=== PATIENT | female | born 1955 | race Caucasian/White ===

== ENCOUNTER 2017-07-03 06:55 | Day surgery (SDC) | payer OTHER ==
[~2017-07-03] VITALS: Ht 160 cm; Wt 63.5 kg
[~2017-07-03 06:55] MED LIST: ASPIRIN EC81 MG PO; ATORVASTATIN CA40 MG PO; BLACK COHOSH40 MG PO; CALCIUM 600 +1 EA15 PO; CITRUCEL479 GM PO; CLARITIN10 MG PO; COQ1050 MG PO; DAILY MULTIPLE1 EACH PO; LISINOPRIL20 MG PO; NORCO 10-325 T1 EACH PO
--- NOTE | 2017-07-03 10:12 | NUR ---
JUANIS COY TOLD ME PT REQUESTED MY PRESENCE. SHE WAS RESTING-ALERT, ORIENTED AND SUPPORTED BY HER YULIANA. I COULD TELL THAT BY THE LOOK ON HER FACE THAT SHE WAS CONCERNED ABOUT HER PROCEDURE TODAY. WE DEBRIEFED, EXPLAINED ORDER OF EVENTS FOR TODAY AND HAD PRAYER WITH BOTH OF THEM. SHE THANKED ME, I WILL FOLLOW UP
--- NOTE | 2017-07-03 10:14 | NUR ---
07/03/17 1014 SheliaRandall dorsey PT AWOKE AT THIS TIME AND RATES HER PAIN AT A 2-3/10.
[2017-07-03] MEDS ORDERED: NORCO 5-325 TA1 EACH PO (11:04)
[2017-07-03] MEDS ORDERED: IBUPROFEN800 MG PO (11:04)
--- NOTE | 2017-07-27 07:49 | OR ---
[facility] [address] [place], [place] [address] Signed DATE OF SERVICE: 07/03/2017 SURGEON: Lashonda Goins MD PREOPERATIVE DIAGNOSIS: Cervical stenosis, postmenopausal bleeding. POSTOPERATIVE DIAGNOSIS: Postmenopausal bleeding, cervical stenosis, atrophic cavity, fundus perforation. PROCEDURE PERFORMED: Hysteroscopy. ANESTHESIA: Total IV anesthetic. ESTIMATED BLOOD LOSS: Minimal. DRAINS: None. INDICATIONS AND FINDINGS: The patient is a 61-year-old female, 2, para 2, who has had 2 episodes of postmenopausal bleeding this year. She had an episode in February and then an ultrasound at that point showed a very thin endometrial stripe. She had a recurrent episode in May. However, at this point, the fundal endometrium could not really be evaluated. EMB was not possible in the office and hysterosonogram was not possible secondary to cervical stenosis. It was felt that hysteroscopy was necessary for diagnosis. At the time of surgery, exam under anesthesia revealed significant uterine prolapse. The cervix was quite stenotic. It was eventually dilated and the cavity sounded to 9 cm. On placement of the hysteroscopy equipment, the cavity appeared to be completely atrophic. However, on evaluation of the fundus, there was a perforation noted and the procedure was terminated at that time. PROCEDURE IN DETAIL: The patient was prepped and draped in the dorsal lithotomy position. A weighted speculum was placed and the anterior lip of the cervix was visualized and grasped with a single-tooth tenaculum. The endocervical canal was then dilated with some difficulty to a #8 dilator. At that point, the s o und could be placed and the cavity sounded to 9 cm. The MyoSure device was introduced using saline as a medium. Evaluation of the cavity was done and it appeared to be completely atrophic; however, on evaluation of the fundus, perforation was noted and the procedure was terminated. The tenaculum and weighted speculum removed. There was no evidence of ongoing bleeding from either the tenaculum site or from the cervix. The patient was then taken to the recovery room in good condition. All sponge and needle counts were correct. She tolerated the procedure well. Electronically Signed By: LASHONDA GOINS MD 07/27/17 0749 PATIENT NAME: ANTIONETTE JOE MARITA OPERATIVE REPORT DATE OF : 51 PHYSICIAN: LASHONDA GOINS MD REPORT #: [id number] REPORT IS CONFIDENTIAL AND NOT TO BE RELEASED WITHOUT AUTHORIZATION [address] [place], [place] [address] Signed Lashonda Goins MD PJW/Modl /[id number] cc: Tc Thomas Electronically Signed By: LASHONDA GOINS MD 07/27/17 0749 PATIENT NAME: ANTIONETTE JOE MARITA OPERATIVE REPORT DATE OF : 51 PHYSICIAN: LASHONDA GOINS MD REPORT #: [id number] REPORT IS CONFIDENTIAL AND NOT TO BE RELEASED WITHOUT AUTHORIZATION
== END 2017-07-03 12:10 | disposition home or self-care (01) ==
LOC: DS 06:55
PROVIDERS: Obstetrics & Gynecology
PROC: 0UDB8ZX Extraction of Endometrium, Via Natural or Artificial Opening Endoscopic, Diagnostic (ICD-10-PCS; principal; 2017-07-03 08:15)
DX: N88.2 Stricture and stenosis of cervix uteri (principal); I10 Essential (primary) hypertension; E78.5 Hyperlipidemia, unspecified; E78.00 Pure hypercholesterolemia, unspecified; K21.9 Gastro-esophageal reflux disease without esophagitis; Z98.890 Other specified postprocedural states
CPT/HCPCS: 00952; J2250; J2704; J2765; J3010; J7120

== ENCOUNTER 2018-12-24 05:30 | Day surgery (SDC) | payer OTHER, MEDICARE ==
[~2018-12-24] VITALS: Ht 160 cm; Wt 66.7 kg
--- NOTE | ~2018-12-24 | OR ---
[facility] [address], [place] [address] Draft DATE OF OPERATION: 12/24/2018 SURGEON: Lashonda Goins MD PRESS CLEANER: Levon Landrum MD PREOPERATIVE DIAGNOSES: Recurrent postmenopausal bleeding, cervical stenosis. POSTOPERATIVE DIAGNOSES: Recurrent postmenopausal bleeding, cervical stenosis, pending pathology, pelvic adhesions. PROCEDURES: Total laparoscopic hysterectomy, bilateral salpingo-oophorectomy, lysis of adhesions, cystoscopy. ANESTHESIA: General ET. ESTIMATED BLOOD LOSS: 50 mL. DRAINS: Humphrey catheter. INDICATIONS AND FINDINGS: The patient is a 63-year-old female 2, para 2, who has had several episodes of postmenopausal bleeding. Unfortunately, during the 2nd episode, a hysteroscopy was attempted, which was complicated by a fundal perforation. She subsequently had recurrent bleeding and even though ultrasound was normal, hysteroscopy was not really entertained given her prior history. At this point, it was felt that she needed to undergo hysterectomy to exclude potential problems with her recurrent bleeding. She does have cervical stenosis that she has undergone colon biopsies in the past. At the time of surgery, it was difficult to dilate her cervix, but it was dilated and no perforation occurred during this time. On laparoscopy, the pelvis appeared normal other than adhesions of the sigmoid epiploica to the left ovary. DESCRIPTION OF PROCEDURE: PATIENT NAME: ANTIONETTE JOE MARITA OPERATIVE REPORT DATE OF : 51 REPORT #: [id number] PHYSICIAN: LASHONDA GOINS MD PCP: LORETTA VEGA MD REPORT IS CONFIDENTIAL AND NOT TO BE RELEASED WITHOUT AUTHORIZATION [facility] [address] [place], [place] [address] Draft The patient was prepped and draped in the dorsal lithotomy position. A weighted speculum was placed and the anterior lip of the cervix was visualized and grasped with a single-tooth tenaculum. The Os Finders was used to dilate the cervix and at that point, it could be sounded and was sounded to 9 cm. The endocervical canal was then dilated to a #8 dilator. The VCare cannula was then placed and the balloon inflated at the fundus. The tenaculum and speculum removed and the cup was fitted over the cervix and a locking cap was fitted into place. Attention was redirected above. The infraumbilical area was injected with 0.5% Marcaine plain. An incision was made with a knife and each layer was then serially elevated and incised until the fascia was opened and identified. Stay sutures were placed. The peritoneum was opened bluntly. The Cong cannula was placed and the balloon inflated. It was tied into place. Placement of the scope confirmed proper positioning. CO2 was then introduced into the abdomen. When it appeared appropriately distended, the pelvis was visualized. A small amount of scar tissue was felt that the planned procedure was appropriate. Secondary ports were placed slightly below the umbilicus and these were placed laterally. The abdominal wall was transilluminated, injected with the Marcaine, incision made with a knife, and the trocar was placed under direct vision. The left hand port was a 5 mm bladed port. The right hand port was a raised needle followed by the expanding port. At this point, the LigaSure [place] device was used to coagulate the infundibulopelvic ligament on the patient's left side. This was done multiple times and then divided. An Endoloop was then placed over the infundibulopelvic ligament to aid hemostasis. The adhesions at the ovary were taken down also with the Maryland device. These were fairly filmy. The tube and ovary were then removed by serially coagulating and dividing the broad ligament. The round ligament was then serially coagulated and divided as well. At this point, the anterior leaf of the peritoneum could be incised allowing partial bladder flap creation. The posterior peritoneum was taken down as well. Following this, the uterine vessels could be skeletonized and coagulated multiple times and divided. Further dissection was done both anteriorly and posteriorly and the cup could be seen at this time. Attention was then directed to the patient's right-hand side. The infundibulopelvic ligament was again identified, coagulated multiple times and divided. An Endoloop was placed over the infundibulopelvic ligament to aid in hemostasis. The tube and ovary were then removed with serial coagulation and division. The round ligament was then identified and coagulated and divided with the LigaSure device as well. The anterior leaf of the peritoneum was incised creating the remaining bladder flap. The posterior peritoneum was taken down as well. The uterine vessels were then skeletonized and coagulated multiple times and then divided. Further dissection was done both posteriorly and anteriorly to allow for further visualization of the cuff. At this point, the VCare did perforate the fundal portion of the uterus. Following this, the right sidewall was reexamined and there appeared to be an open vessel, though there was no evidence of any bleeding. This was felt to be from the infundibulopelvic ligament. This was re-tied with another Endoloop of 0 PDS. Following this, it was felt that the specimen could be removed. The Interface Security Systemsision device was used and it was begun posteriorly, wrapped around PATIENT NAME: ANTIONETTE JOE OPERATIVE REPORT DATE OF : 51 REPORT #: [id number] PHYSICIAN: LASHONDA GOINS MD PCP: LORETTA VEGA MD REPORT IS CONFIDENTIAL AND NOT TO BE RELEASED WITHOUT AUTHORIZATION [facility] [address] [place], [place] [address] Draft the left side anteriorly and then posteriorly wrapped around the right side and anteriorly as well. Following this, the specimen was removed vaginally. A glove filled with two wet 4 x 8s was placed in the vagina. This allowed the pneumoperitoneum to reaccumulate. Gloves were changed again and attention redirected above. The abdomen was copiously irrigated with fluid and good hemostasis was noted. The Endo Stitch was then used to close the vaginal cuff. This was begun at the patient's right uterosacral ligament incorporating both the perineum posteriorly and the vaginal mucosa at the posterior cuff and then coming through the vaginal mucosa through the cuff anteriorly. This was a running suture from the patient's right uterosacral ligament to the patient's left uterosacral ligament and back to the center. The abdomen was again thoroughly inspected and there was no evidence of ongoing bleeding. The pressure was turned down and again no bleeding was noted. The abdomen was then deflated and the instruments were removed. The fascial incision of the umbilicus was reidentified and closed in a running suture of 0 Vicryl. The skin incisions were closed with subcuticular sutures of 3-0 Vicryl Rapide. Attention was directed below and the glove was removed from the vagina. The Humphrey catheter was removed and the cystoscope was placed. The patient had received IV fluorescein. The bladder was filled and there was no evidence of any injury to the bladder. Free flow of urine was seen to freely egress from both of the ureteral orifices, so no fluorescein was seen at this time. Following this, the bladder was drained and the cystoscope removed. The Humphrey catheter was replaced. All sponge and needle counts were correct. She tolerated the procedure well and was taken to the recovery room in good condition. Lashonda Goins MD PJW/MODL /[id number] cc: MD Levon Herrera MD Copies: LORETTA VEGA MD PATIENT NAME: ANTIONETTE JOE MARITA OPERATIVE REPORT DATE OF : 51 REPORT #: [id number] PHYSICIAN: LASHONDA GOINS MD PCP: LORETTA VEGA MD REPORT IS CONFIDENTIAL AND NOT TO BE RELEASED WITHOUT AUTHORIZATION [facility] [address] [place] [address] [place] [address] Draft LEVON LANDRUM MD ~ PATIENT NAME: ANTIONETTE JOE OPERATIVE REPORT DATE OF : 51 REPORT #: [id number] PHYSICIAN: LASHONDA GOINS MD PCP: LORETTA VEGA MD REPORT IS CONFIDENTIAL AND NOT TO BE RELEASED WITHOUT AUTHORIZATION
[~2018-12-24 05:30] MED LIST changes: +CINNAMON500 MG PO; +IBUPROFEN800 MG PO; +NORCO 5-325 TA1 EACH PO
--- NOTE | 2018-12-24 09:31 | NUR ---
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 PT NONAROUSABLE TO PAINFUL STIMULI. RESP EVEN AND UNLABORED BUT SHALLOW.
--- NOTE | 2018-12-24 10:39 | NUR ---
OXYGEN TURNED OFF AFTER 1ST SET OF VITALS ARE TAKEN. CONTINUOUS PULSE OXIMETER LEFT IN PLACE. ICED WATER @ BS. PATIENT DENIES DESIRE FOR TAKING A DRINK. PATIENT'S SPOUSE IS AT THE BEDSIDE. PRN GIVEN FOR PAIN. CALL LIGHT W/IN REACH.
--- NOTE | 2018-12-24 11:40 | NUR ---
MORE ICED WATER GIVEN. CRACKERS GIVEN. PATIENT IS ASLEEP WHEN THIS RN ENTERS THE ROOM AND HER OXYGEN SATURATION IS 97% ON RA. CONTINUOUS PULSE OXIMETER IS DISCONTINUED. CALL LIGHT W/IN REACH.
--- NOTE | 2018-12-24 12:37 | NUR ---
PATIENT UP TO THE BEDSIDE AND STANDS WELL AND DENIES DIZZINESS. CELAYA BALLOON IS DC FOR 10 ML AND CELAYA IS DC WNL. PATIENT TOLERATES THAT WELL. 150 ML BRIGHT YELLOW URINE NOTED TO CELAYA OVERNIGHT BAG. SOUP AND APPLESAUCE IS GIVEN. HAWA HUGGER ON WARM. PATIENT'S SPOUSE IS @ THE BS.
--- NOTE | 2018-12-24 14:20 | NUR ---
PATIENT ASLEEP WHEN THIS RN ENTERS THE ROOM. PATIENT WAKES EASILY TO THE RN VOICE. PATIENT'S SPOUSE IS IN THE ROOM. PATIENT'S HEAD IS ELEVATED PER HER REQUEST. PATIENT DENIES ADDITIONAL NEEDS @ THIS TIME.
--- NOTE | 2018-12-24 14:23 | NUR ---
PATIENT UP TO THE BATHROOM WITH RN STANDBY. PATIENT AMBULATES WELL AND DENIES DIZZINESS. PATIENT VOIDS 100 ML BRIGHT YELLOW URINE AND REQ DC HOME. DC INSTRUCTIONS GIVEN IN PRESENCE OF SPOUSE AND BOTH VERBALIZE UNDERSTANDING. PATIENT GETTING DRESSING IN PRESENCE OF SPOUSE.
--- NOTE | 2018-12-24 14:39 | NUR ---
CONNECTED WITH PT'S -HE WAS HEADED TO PHARMACY WHILE PT IS RECOVERING. VISITED PT, SHE WAS GROGGY, BUT AWARE OF MY PRESENCE, AND PLEASANT. SHE DID ADMIT THAT SHE WAS CHILLY, ARRANGED FOR A BLANKET AND WILL FOLLOW NEEDED
--- NOTE | 2018-12-24 14:56 | NUR ---
PATIENT TRANSFERS SELF TO AND THEN TO PERSONAL VEHICLE AND TOLERATES THAT WELL.
== END 2018-12-24 14:50 | disposition home or self-care (01) ==
LOC: DS 05:30
PROVIDERS: Obstetrics & Gynecology
PROC: 0UT94ZZ Resection of Uterus, Percutaneous Endoscopic Approach (ICD-10-PCS; principal; 2018-12-24 06:45)
PROC: 0UT24ZZ Resection of Bilateral Ovaries, Percutaneous Endoscopic Approach (ICD-10-PCS; 2018-12-24 06:45)
PROC: 0UT74ZZ Resection of Bilateral Fallopian Tubes, Percutaneous Endoscopic Approach (ICD-10-PCS; 2018-12-24 06:45)
DX: D25.1 Intramural leiomyoma of uterus (principal); D25.2 Subserosal leiomyoma of uterus; N83.292 Other ovarian cyst, left side; N83.291 Other ovarian cyst, right side; N88.2 Stricture and stenosis of cervix uteri; N73.6 Female pelvic peritoneal adhesions (postinfective); N83.8 Other noninflammatory disorders of ovary, fallopian tube and broad ligament; I10 Essential (primary) hypertension; E78.00 Pure hypercholesterolemia, unspecified; N39.3 Stress incontinence (female) (male); K21.9 Gastro-esophageal reflux disease without esophagitis; Z88.0 Allergy status to penicillin; Z79.899 Other long term (current) drug therapy; Z79.82 Long term (current) use of aspirin
CPT/HCPCS: 00840; J0131; J0694; J1100; J1644; J1885; J2250; J2270; J2405; J2704; J3010; J7120

== ENCOUNTER 2020-09-27 11:59 | Day surgery (SDC) | payer MEDICARE ==
[~2020-09-27] VITALS: Ht 157.5 cm; Wt 63.6 kg
[2020-09-27] MEDS ORDERED: CALCIUM 600 MG1 EACH PO (12:20)
--- NOTE | 2020-09-27 15:11 | NUR ---
09/27/20 1511 Karen Gaspar 1452 PT ARRIVED IN PACU SLEEPY WITH NO C/O'S. ABD SOFT. 1500 DR AT BEDSIDE TALKING WITH PT. 1510 PASSING FLATUS.
--- NOTE | 2020-09-28 08:31 | OR ---
[facility] [address] [place], [place] [address] Signed DATE OF OPERATION: 09/27/2020 SURGEON: Jermaine Adorno MD PREOPERATIVE DIAGNOSES: 1. Colon surveillance. 2. Last colonoscopy in 2014 (extensive diverticulosis). POSTOPERATIVE DIAGNOSES: 1. Polyps x4. 2. Extensive diverticulosis. PROCEDURE: Total colonoscopy to cecum with hot snare polypectomy, polyp of cecum, cold morcellation polypectomy, right colon polyp, cold morcellation polypectomy, left-sided polyp. ANESTHESIA: Intravenous sedation, fentanyl 150 mcg, Versed 6 mg. INDICATION: This 64-year-old white woman is a patient of Dr. Thomas and known to me from the past having undergone colonoscopy in 2014 where she was found only to have extensive diverticulosis. She has complaints of "gas pain." Additionally, she does have family history of colon cancer in her brother. She is admitted at this time to undergo colonoscopy. She understands the risks of bleeding, infection, and perforation. FINDINGS: The prep was good overall. Complete colonoscopy was undertaken of the cecum. Colonoscopy was rather challenging due to the extent of her diverticulosis, which extended from the sigmoid completely to the cecum. There were 4 small polyps, all excised completely. There was no sign of cancer proper. DESCRIPTION OF PROCEDURE: The patient was brought into the endoscopy suite and placed in lateral decubitus position, given intravenous sedation to the point of slurred speech and nystagmus. Digital rectal examination was normal. An Olympus video colonoscope was passed in the rectum and manipulated throughout the colon. Numerous diverticula are seen in the sigmoid and left colon, which required a considerable amount of time and effort just to pass through this area. Ultimately, the Electronically Signed By: JERMAINE ADORNO MD 09/28/20 0831 PATIENT NAME: ANTIONETTE JOE OPERATIVE REPORT DATE OF : 51 REPORT #: [id number] PHYSICIAN: JERMAINE ADORNO MD PCP: LORETTA THOMAS MD REPORT IS CONFIDENTIAL AND NOT TO BE RELEASED WITHOUT AUTHORIZATION [facility] [address] [place], [place] [address] Signed scope was passed further and ultimately to the cecum itself. The ileocecal valve and appendiceal orifice were normal. There seem to be a 1 cm or less sinus flat polyp of the cecum, which was excised with hot snare polypectomy technique, passed for pathology. Scope was withdrawn and a mid ascending colon polyp was noted. This too was excised with cold morcellation technique. A bit further was a small polyp also excised. Further withdrawal of scope noted only the diverticulosis until 60 cm from the anal verge where a small polyp was noted. This was excised with cold morcellation technique. The remaining colon showed only diverticulosis. The rectum was normal. Scope was removed and the patient was taken to recovery room in good condition. Notably, the photo archived for the colonoscopy was incomplete, but visualization of the cecal polyp represent diverticuli was accomplished. CONCLUSION DIAGNOSES: 1. Extensive diverticulosis. 2. Polyps x4, likely all benign. PLAN: Recommend repeat colonoscopy in 5 years based on family history of colon cancer in brother. MD LUIS Allan/DENNIS /[id number] cc: Loretta Thomas MD Copies: LORETTA THOMAS MD ~ Electronically Signed By: JERMAINE ADORNO MD 09/28/20 0831 PATIENT NAME: ANTIONETTE JOE MARITA OPERATIVE REPORT DATE OF : 51 REPORT #: [id number] PHYSICIAN: JERMAINE ADORNO MD PCP: LORETTA THOMAS MD REPORT IS CONFIDENTIAL AND NOT TO BE RELEASED WITHOUT AUTHORIZATION
--- NOTE | 2020-09-28 12:21 | PATH ---
[facility] [address] [place], [place] [address] Signed SPECIMEN(S): A CECAL POLYP SPECIMEN(S): B ASCENDING POLYP SPECIMEN(S): C DISTAL ASCENDING POLYP SPECIMEN(S): D COLON POLYP AT 60 CM SPECIMEN SOURCE: A. CECAL POLYP B. ASCENDING POLYP C. DISTAL ASCENDING POLYP D. COLON POLYP AT 60 CM CLINICAL HISTORY: Pre: Family history, abdominal pain. Post: Polyps x 4, diverticulosis. MICROSCOPIC DESCRIPTION: Histologic sections of all submitted blocks are examined by light microscopy. These findings, together with the gross examination, support the pathologic diagnosis. FINAL PATHOLOGIC DIAGNOSIS: A. Colon, cecum, polyp, polypectomy: - Tubular adenoma. - Negative for high-grade dysplasia or malignancy. B. Colon, ascending, polyp, polypectomy: - Fragments of tubular adenoma. - Negative for high-grade dysplasia or malignancy. C. Colon, distal ascending, polyp, polypectomy: - Tubular adenoma. - Negative for high-grade dysplasia or malignancy. D. Colon, polyp at 60 cm, polypectomy: - Fragments of colonic mucosa with no histopathologic abnormality. - Benign mucosal lymphoid aggregate is present in one fragment. - Negative for dysplasia or malignancy. NAL:bg:C2NR GROSS DESCRIPTION: Four specimens are received in four containers, labeled "CB." A. The specimen, labeled "CB, cecal polyp," is received in formalin and consists of one long soft tissue fragment that measures 0.4 cm in greatest dimension. The specimen is entirely submitted in cassette (A1). B. The specimen, labeled "CB, ascending colon polyp," is received in formalin PATIENT NAME: ANTIONETTE JOE PATHOLOGY DATE OF : 51 REPORT #: [id number] PHYSICIAN: PETER ROBERTSON PCP: LORETTA VEGA MD REPORT IS CONFIDENTIAL AND NOT TO BE RELEASED WITHOUT AUTHORIZATION [facility] [address] [place] [address] Signed and consists of three long soft tissue fragments that measure 0.1-0.2 cm in greatest dimension. The specimen is entirely submitted in cassette (B1). C. The specimen, labeled "CB, distal ascending colon polyp," is received in formalin and consists of two long soft tissue fragments that measure 0.1-0.2 cm in greatest dimension. The specimen is entirely submitted in cassette (C1). D. The specimen, labeled "CB, colon polyp at 60 cm," is received in formalin and consists of two long soft tissue fragments that measure 0.1 cm in greatest dimension. The specimen is entirely submitted in cassette (D1). JS (under the direct supervision of a pathologist) The Gross Description was prepared using a voice recognition system. The report was reviewed for accuracy; however, sound-alike word errors, addition and/or deletions may occur. If there is any question about this report, please contact Client Services. PERFORMING LABORATORY: The technical component was performed by [employer] [address] ([employer]: Doretha Herbert MD; CLIA# [id number]). [facility] [address] [address] (CLIA# [id number]). Diagnostician: Ciltaly Luis MD Pathologist Electronically Signed 09/28/2020 Copies: ~ PATIENT NAME: ANTIONETTE JOE PATHOLOGY DATE OF : 51 REPORT #: [id number] PHYSICIAN: PETER ROBERTSON PCP: LORETTA VEGA MD REPORT IS CONFIDENTIAL AND NOT TO BE RELEASED WITHOUT AUTHORIZATION
== END 2020-09-27 15:52 | disposition home or self-care (01) ==
LOC: OPS 11:59 → DS 12:03 → OPS 13:00 → DS 13:00 → OPS 15:52
PROVIDERS: ATTEND Surgery
PROC: 0DBK8ZX Excision of Ascending Colon, Via Natural or Artificial Opening Endoscopic, Diagnostic (ICD-10-PCS; 2020-09-27)
PROC: 0DBE8ZX Excision of Large Intestine, Via Natural or Artificial Opening Endoscopic, Diagnostic (ICD-10-PCS; 2020-09-27)
PROC: 0DBH8ZX Excision of Cecum, Via Natural or Artificial Opening Endoscopic, Diagnostic (ICD-10-PCS; principal; 2020-09-27 13:00)
DX: Z12.11 Encounter for screening for malignant neoplasm of colon (principal); D12.2 Benign neoplasm of ascending colon; D12.0 Benign neoplasm of cecum; K57.30 Diverticulosis of large intestine without perforation or abscess without bleeding; I10 Essential (primary) hypertension; N95.1 Menopausal and female climacteric states; E78.00 Pure hypercholesterolemia, unspecified; Z88.0 Allergy status to penicillin; Z79.899 Other long term (current) drug therapy; Z80.0 Family history of malignant neoplasm of digestive organs
CPT/HCPCS: 99153; G0500; J2250; J3010; J7121

== ENCOUNTER 2021-05-26 11:04 | Inpatient (IN) | payer MEDICARE ==
[~2021-05-26] VITALS: Ht 157.5 cm; Wt 65.6 kg
[~2021-05-26 11:04] MED LIST changes: +ADULT LOW DOSE81 MG PO; -ASPIRIN EC81 MG PO; +CALCIUM 600 +1 EA14 PO; -CITRUCEL479 GM PO; +CITRUCEL500 MG PO; +COQ-10100 MG PO; -COQ1050 MG PO
[2021-05-26] MEDS ORDERED: PAROXETINE HCL10 MG PO (11:20)
[2021-05-26] MEDS ORDERED: LISINOPRIL10 MG PO (17:24)
[2021-05-26] MEDS ORDERED: LATANOPROST2.5 ML OU (17:26)
--- NOTE | 2021-05-26 17:37 | NUR ---
BOTH IV SITES ARE INTACT, NO REDNESS OR SWELLING NOTED, PT DENIES PAIN AT EITHER SITE. FLUIDS AND FLUSHES INFUSE EASILY.
--- NOTE | 2021-05-26 20:20 | NUR ---
AWAKE, ALERT. BLOOD INFUSING. UP TO BSC TO VOID AND JAVID WELL. VOIDED CL LIGHT YELLOW URINE.
--- NOTE | 2021-05-26 21:30 | NUR ---
BLOOD INFUSED AT 2120. PT UP TO BSC TO VOID LARGE AMT URINE, STATES NOT DIZZY NOW AND IS FEELING WARMER SINCE RECIEVED BLOOD.
--- NOTE | 2021-05-26 23:00 | NUR ---
DR MANUEL NOTIFIED OF LAB RESULTS.
--- NOTE | 2021-05-27 00:10 | NUR ---
PT SLEEPING AT THIS TIME.
--- NOTE | 2021-05-27 00:51 | NUR ---
AWAKENED FOR ASSESSMENT. UP TO BSC TO VOID, DID BRIEFLY SIT BACK DOWN ON BED BUT STATES WASN'T DIZZY. IS PASSING GAS.
--- NOTE | 2021-05-27 01:00 | NUR ---
CARE ASSUMED OF PT, REPORT RECEIVED FROM ANALI OLIVAREZ. PT IN BED, RESTFUL, RESP EVEN AND UNLABORED.
--- NOTE | 2021-05-27 02:20 | NUR ---
SECOND BAG OF D5 STARTED INFUSING, PT RESTING WITH EYES CLOSED, RRR.
--- NOTE | 2021-05-27 03:00 | NUR ---
UP TO VOID IN BSC, BACK TO BED, HR STEADY WHILE UP, NO REQUESTS.
--- NOTE | 2021-05-27 04:30 | NUR ---
IN TO CHECK ON PT, STATES SHE HAS BEEN SLEEPING, DENIES PAIN/NEEDS.
--- NOTE | 2021-05-27 05:30 | NUR ---
PT CALLS TO USE BSC, UP TO VOID THEN BACK TO BED. BLOOD DRAWN FROM SALINE LOCK FOR AM LABS. REMINDED OF NPO STATUS AND PLAN FOR THE DAY.
--- NOTE | 2021-05-27 06:50 | NUR ---
PT RESTING WITH EYES CLOSED, RRR.
--- NOTE | 2021-05-27 08:12 | NUR ---
PT AWAKE AND ALERT X4 SITTING UP IN BED TALKING WITH SPOUSE AT THE BEDSIDE. PT UP AND AMBULATES TO THE BATHROOM WITH STAND BY ASSIST ONLY. PT INDEPENDENT IN BATHROOM, THEN BACK TO BED. GIVES OK ORDER FOR CLEAR LIQUIDS FOR BREAKFAST. CLEAR LIQUID TRAY GIVEN. PT DENIES PAIN, NAUSEA, AND SOB, VITALS WNL. NOTED THAT PT HR ELEVATES TO 110-120'S WITH AMBULATION.
--- NOTE | 2021-05-27 08:46 | NUR ---
PT UP TO THE BATHROOM TO DO OWN SELF CARES, SHE CHANGED HER OWN GOWN, SKIN CARE, ORAL CARE. ALL LINENS ON BED CHANGED BY RN. PT THEN UP TO THE CHAIR FOR THE TIME BEING. STILL NOTED THAT PT HR ELEVATED UP TO 115 DURING ACTIVITY. PT DENIES CHEST PAIN, SOB, NAUSEA, OR PAIN IN GENERAL.
--- NOTE | 2021-05-27 10:55 | NUR ---
PT REMAINS SITTING UP IN THE CHAIR, AWAKE AND ALERT X4. PT DENIES PAIN, NAUSEA, AND SOB. PT IS WATCHING TV AND HAS THE CALL LIGHT IN HER LAP. HR REMAINS 70'S-80'S SINUS RHYTHM.
--- NOTE | 2021-05-27 12:27 | NUR ---
PT UP AND AMBULATED TO THE BATHROOM FROM THE CHAIR AND THEN BACK, CORD MANAGEMENT ASSIST ONLY. PT HR ELEVATED TO 107 WITH ACTIVITY. PT DENIES PAIN, NAUSEA, AND SOB. PT DENIES ANY FATIGUE WITH ACTIVITY. SHE REMAINS ALERT AND ORIENTED X4. IV SITES ARE INTACT, NO REDNESS OR SWELLING NOTED, PT DEINES PAIN AT THE SITE.
--- NOTE | 2021-05-27 13:08 | EKG ---
[facility] [address] [facility] [place] [address] Signed Normal sinus rhythm Nonspecific ST abnormality Abnormal ECG When compared with ECG of 15-DEC-2018 16:14, No significant change was found Confirmed by ADRI MANUEL MD ([id number]) on 05/27/2021 1:08:01 PM Electronically Signed By: ADRI MANUEL MD 05/27/21 1308 PATIENT NAME: ANTIONETTE JOE Electrocardiogram DATE OF : 51 PHYSICIAN: ADRI MANUEL MD REPORT #: [id number] REPORT IS CONFIDENTIAL AND NOT TO BE RELEASED WITHOUT AUTHORIZATION
--- NOTE | 2021-05-27 14:50 | NUR ---
HAS ADVANCED PT DIET TO FULL LIQUIDS. PT ORDERS AND IS ABLE TO JAVID FULL LIQUIDS WELL. PT DENIES NAUSEA, SOB, AND PAIN.
--- NOTE | 2021-05-27 15:43 | NUR ---
pt ambulated 4 times in the hallway with her , HR elevated to 100's-110's during ambulation.
--- NOTE | 2021-05-27 17:14 | NUR ---
PT UP TO THE BATHROOM TO VOID AND THEN BACK TO THE CHAIR FOR DINNER. PT DINNER SERVED. CALL LIGHT IS WITHIN PT REACH. PT DENIES ANY OTHER NEEDS AT THIS TIME.
--- NOTE | 2021-05-27 19:40 | NUR ---
REPORT RECEIVED FROM MALINDA OLIVAREZ. IN TO CHECK ON PT. PT SITTING UP IN CHAIR CROCHETING. DENIES PAIN OR SOB AT THIS TIME.
--- NOTE | 2021-05-27 20:06 | NUR ---
DR ENGLAND ROUNDING ON UNIT, GIVES ORDER TO TRANSFER TO MED SURG. PT INFORMED.
--- NOTE | 2021-05-27 21:00 | NUR ---
REPORT GIVEN TO ARABELLA OLIVAREZ. PT TRANSFERRED TO MED SURG WITH SITE LEAD.
--- NOTE | 2021-05-27 21:25 | NUR ---
IN ROOM TO ASSESS PT AND ORIENT PT TO ROOM/CALL LIGHT. SHE DENIES PAIN AND NAUSEA AT THIS TIME. SHE ALSO DENIES DIZZINES AND REPORTS FEELING BETTER THAN SHE HAS BEEN. PT ALSO STATES SHE IS EATING BETTER. PT UP TO VOID AND BACK TO BED. SHE DENIES ANY BM'S SINCE SHE WAS AT HOME AND DENIES ANY BLEEDING. PT IS GOING TO READ AND WILL CALL LATER WHEN SHE WANTS HER EVENING MEDS. CALL LIGHT IS CLOSE.
--- NOTE | 2021-05-27 21:55 | NUR ---
IN ROOM TO ADMINISTER EVENING MEDICATIONS. PT DENIES FURTHER NEEDS AT THIS TIME. CALL LIGHT IS CLOSE.
--- NOTE | 2021-05-27 23:35 | NUR ---
PT IS RESTING WITH EYES CLOSED, RR IS EVEN AND NONLABORED. CALL LIGHT IS CLOSE.
--- NOTE | 2021-05-28 00:52 | NUR ---
PT IS RESTING WITH EYES CLOSED, RR IS EVEN AND NONLABORED. CALL LIGHT IS CLOSE.
--- NOTE | 2021-05-28 02:13 | NUR ---
PT IS RESTING WITH EYES CLOSED, RR IS EVEN AND NONLABORED. CALL LIGHT IS CLOSE.
--- NOTE | 2021-05-28 04:27 | NUR ---
PT IS RESTING WITH EYES CLOSED, RR IS EVEN AND NONLABORED. CALL LIGHT IS CLOSE.
--- NOTE | 2021-05-28 06:15 | NUR ---
VSS AND I&O'S COMPLETE. pt DENIES NEED TO VOID AT THIS TIME, INDEPENDENT IN ROOM, INSTRUCTED TO CALL STAFF AFTER VOIDING TO MEASURE OUTPUT, pt VERBALIZED UNDERSTANDING, PRIMARY RN ADOLFO AWARE. CALL LIGHT IN REACH.
--- NOTE | 2021-05-28 06:55 | NUR ---
PT CALLED TO ASK ABOUT TODAYS PLAN, TOLD HER LABS ARE NOT BACK YET BUT THE DR WILL REVIEW THEM AND DO ROUNDS LATER. RECEIVED BREAKFAST ORDER AND EMPTIED URINE FROM [facility]. PT DENIES FURTHER NEEDS. CALL LIGHT IS CLOSE.
--- NOTE | 2021-05-28 07:05 | NUR ---
Report received from Nicole OLIVAREZ. Pt alert and oriented resting in bed, on room air, no needs at this time. Call light in reach, will continue plan of care.
--- NOTE | 2021-05-28 08:40 | NUR ---
Scheduled medication administered, assessment complete. Pt ambulating by self in room, at bedside. Pt and express concern about Hgb/Hct and this RN educates regarding normal levels and signs/sx of low count. both IV flushed, WNL, fresh water provided. No further needs at this time
--- NOTE | 2021-05-28 11:00 | NUR ---
PT CALLS THIS RN, PT HAD BM, WHICH IS BLACK AND HARD IN CONSISTENCY. MD NOTIFIED. PT HAS NO NEEDS AT THIS TIME AND RETURNS TO BED TO REST.
--- NOTE | 2021-05-28 12:38 | NUR ---
PT LEAVES FOR PROCEDURE WITH OR TEAM. CONSENT SIGNED, LABS + HP IN CHART, IVF INFUSING. ALLERGY ARMBAND IN PLACE. PT VERBALIZES UNDERSTANDING OF PROCEDURE AND HAS NO QUESTIONS. VSS, A+O, ON ROOM AIR.
--- NOTE | 2021-05-28 13:18 | NUR ---
05/28/21 1318 Duffy,Malgorzata Kohli ORAL AIRWAY OUT.
--- NOTE | 2021-05-28 13:40 | NUR ---
Pt returns from procedure, DORIS, A+O, Yvonne OLIVAREZ in room to assist with pt settling back into room.
--- NOTE | 2021-05-28 14:30 | NUR ---
Rounded on patient who is resting in bed with at bedside, both state no needs. A+O, on room air, sipping water at this time. Call light in reach.
[2021-05-28] MEDS ORDERED: GLUCOSAMINE &1 EACH PO (15:14)
--- NOTE | 2021-05-28 15:17 | NUR ---
Medications reconciled using pharmacy records and patient interview
--- NOTE | 2021-05-28 16:49 | NUR ---
Rounded on patient who is sitting up in bed, states no pain or nausea, no further BM. assessment complete. Dinner ordered. at bedside, attentive to pt. Call light in reach.
--- NOTE | 2021-05-28 18:00 | NUR ---
Discharge teaching provided by rn discharge.
[2021-05-28] MEDS ORDERED: PANTOPRAZOLE SO40 MG PO (18:01)
== END 2021-05-28 18:43 | disposition home or self-care (01) | DRG 811 ==
LOC: ED 11:04 → CCU 15:50 → MS 05-27 21:00
PROVIDERS: Surgery; ADMIT Internal Medicine; ATTEND Internal Medicine
PROC: 30233N1 Transfusion of Nonautologous Red Blood Cells into Peripheral Vein, Percutaneous Approach (ICD-10-PCS; 2021-05-26)
PROC: 0DB68ZX Excision of Stomach, Via Natural or Artificial Opening Endoscopic, Diagnostic (ICD-10-PCS; principal; 2021-05-28 12:27)
DX: D62 Acute posthemorrhagic anemia (principal); K57.11 Diverticulosis of small intestine without perforation or abscess with bleeding; E87.1 Hypo-osmolality and hyponatremia; Z20.822 Contact with and (suspected) exposure to COVID-19; R01.1 Cardiac murmur, unspecified; K81.9 Cholecystitis, unspecified; I10 Essential (primary) hypertension; E78.5 Hyperlipidemia, unspecified; N95.1 Menopausal and female climacteric states; R23.2 Flushing; Z88.0 Allergy status to penicillin; Z79.899 Other long term (current) drug therapy; Z79.82 Long term (current) use of aspirin
CPT/HCPCS: 36430; 71045; 74177; 80048; 80053; 83690; 83735; 84295; 84484; 85025; 85379; 85610; 85730; 93005; 93010; 99285-25; C9113; C9803; J0330; J2405; J2765; J3475; J7030; J7040; J7070; Q9967; U0003

== ENCOUNTER 2021-07-13 07:50 | Day surgery (SDC) | payer MEDICARE ==
[~2021-07-13] VITALS: Ht 157.5 cm; Wt 60.0 kg
[~2021-07-13 07:50] MED LIST changes: +GLUCOSAMINE &1 EACH PO; +LATANOPROST2.5 ML OU; +LISINOPRIL10 MG PO; +PANTOPRAZOLE SO40 MG PO; +PAROXETINE HCL10 MG PO
[2021-07-13] MEDS ORDERED: IRON325 M1 PO (08:21)
--- NOTE | 2021-07-13 11:50 | NUR ---
07/13/21 1150 Marina Mayers 1146- PT ARRIVES TO PACU NONAROUSABLE TO NOXIOUS STIMULI WITH AN OPA IN PLACE. RESP EVEN AND UNLABORED. OXYGEN SAT HIGH 90'S TO 100% ON 6L VIA MASK.
[2021-07-13] MEDS ORDERED: OXYCODON-ACETA1 EAC2 PO (12:09)
[2021-07-13] MEDS ORDERED: IBUPROFEN600 MG PO (12:09)
[2021-07-13] MEDS ORDERED: ACETAMINOPHEN500 MG PO (12:10)
--- NOTE | 2021-07-13 12:55 | NUR ---
1245: PATIENT BACK IN DAY SURGERY ROOM FROM PACU. DENIES PAIN. DENIES NAUSEA. ABDOMINAL SITES X 5 WITH STERI STRIPS WITH SCANT AMOUNT OF RED DRAINAGE. IV SITE WNL. SCDs ON. VS CHECKED. AT BEDSIDE. CALL LIGHT WITHIN REACH. PATIENT GIVEN SNACKS AND ICE WATER.
--- NOTE | 2021-07-13 13:19 | NUR ---
PATIENT TOLERATING SNACKS AND WATER. WATCHING TV. AT BEDSIDE. CALL LIGHT WITHIN REACH.
--- NOTE | 2021-07-13 13:55 | NUR ---
VS CHECKED. DENIES PAIN. REFILLED WATER. AT BEDSIDE. CALL LIGHT WITHIN REACH.
--- NOTE | 2021-07-13 14:33 | NUR ---
1430-PATIENT AWAKE WATCHING TV DENIES PAIN OR NAUSEA. GIVEN MORE WATER
--- NOTE | 2021-07-13 15:33 | NUR ---
1510-PATIENT AMBULATED IN HALLWAY 50 FEET REPORTS "FEELS WEAK" PATIENT RETURNED TO BED DENIES NEED TO VOID. AT BEDSIDE. GOWN CHANGED DRESSING ABOVE UMBILICUS HAD LIGHT DRAINAGE. PATIENT REPORTS "GAS PAINS" /10. TOLERABLE LEVEL IS 4/10
--- NOTE | 2021-07-13 15:37 | NUR ---
1525-PATIENT MEDICATED PER EMAR FOR PAIN OF 6/10 DENIES NAUSEA. PATIENT GIVEN MEY CRACKERS AND APPLESAUCE. HOB ELEVATED. GIVEN PRESCRIPTION TO GO FILL. CALL LIGHT WITHIN REACH.
--- NOTE | 2021-07-13 16:35 | NUR ---
1615: PATIENT ASSISTED OOB. UPON STANDING, PATIENT HAD CLEAR BLOOD TINGE DRAINAGE COMING FROM RIGHT LOWER ABDOMEN, UMBILICAL AND EPIGASTRIC SURGICAL SITES. ALL THOSE SITES WERE REINFORCED WITH GUAZE AND MEDIPORE TAPE. PATIENT ASSISTED OOB AGAIN AND TO BATHROOM. GAIT STEADY. DENIES FEELING WEAK WHILE WALKING. UNABLE TO VOID. GAIT STEADY BACK TO ROOM. PATIENT DENIES FEELING URGE TO VOID OR UNCOMFORTABLE. WILL WAIT UNTIL CLOSE TO 1700 TO TRY AND VOID AGAIN. WATER REFILLED. CALL LIGHT WITHIN REACH.
--- NOTE | 2021-07-13 17:36 | NUR ---
1730 pt doesnt feel need to urinate. bladder scanned for 416mls. will wait to see if she can go.
--- NOTE | 2021-07-13 18:03 | NUR ---
1745 AMB TO BR WITH ASSIST. ABLE TO VOID 100MLS YELLOW URINE. WANTS TO GO HOME. GETTING DRESSED HERE TO PULL CAR TO FRONT. DCD PER WC.
--- NOTE | 2021-07-17 16:08 | OR ---
[facility] [address] [place], [place] [address] Signed DATE OF OPERATION: 07/13/2021 SURGEON: Jermaine Adorno MD PREOPERATIVE DIAGNOSES: 1. History of ERCP and papillotomy for common duct stones ([facility]). 2. Chronic cholecystitis. POSTOPERATIVE DIAGNOSES: 1. History of ERCP and papillotomy for common duct stones ([facility]). 2. Chronic cholecystitis. 3. Chronic appendiceal inflammation. PROCEDURES: 1. Laparoscopic cholecystectomy with intraoperative cholangiogram. 2. Surgeon-directed fluoroscopy. 3. Laparoscopic appendectomy. ANESTHESIA: General endotracheal; Brigido Lorraine, [employer]PERATOR and local 20 mL of 0.25% Marcaine with epinephrine. INDICATIONS: This 65-year-old white woman is a patient of Dr. Hemant Thomas, and on May 09, presented to the [facility] Emergency Room with upper abdominal and some chest pain, underwent evaluation, found to have no evidence of myocardial infarction, but upper endoscopy and probable ERCP papillotomy was undertaken for clearance of a common duct which was said to have had stones. 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 She was advised to have cholecystectomy. Notably, she had black tarry stools on May 26, , and and was evaluated by upper endoscopy by Dr. Whitaker showing no evidence of ulceration or the source of bleeding. Presumably, the ERCP papillotomy site was source of bleeding. She has had no further bleeding. She did undergo a gallbladder ultrasound on May 31 showing persistent modest gallbladder sludge. Gallbladder wall was considered visible, but not objectively thickened, but slightly irregular in contour. She was admitted at this time to undergo cholecystectomy. She understands the risks of bleeding, infection, bile duct injury, need for other indicated procedures. The patient and her specifically asked that additional evaluation in the abdomen be undertaken to assess for any other problems that may be present as her symptoms have been vague and not entirely localized to the right upper abdomen. Understanding the risks of operation, they wished to proceed. Electronically Signed By: JERMAINE ADORNO MD 07/17/21 1608 PATIENT NAME: ANTIONETTE JOE OPERATIVE REPORT DATE OF : 51 REPORT #: [id number] PHYSICIAN: JERMAINE ADORNO MD PCP: LORETTA THOMAS MD REPORT IS CONFIDENTIAL AND NOT TO BE RELEASED WITHOUT AUTHORIZATION [facility] [address] [place], [place] [address] Signed FINDINGS: The gallbladder had chronic inflammation was not severe and certainly not acute. The liver was normal. Intraoperative cholangiogram showed no sign of filling defect within the biliary tree. There was some distortion of the ampulla likely consistent with ampullary papillotomy in the past. Additional evaluation showed the appendix to be rather elongated, generally retrocecal and with mild chronic inflammation. On that basis, appendectomy was also performed. Palpation of the mesoappendix showed there to be a firm nodule consistent with small lymph node, which may be additional testimony to the possibility of chronic appendicitis. The terminal ileum was normal and no other abnormalities were identified. DESCRIPTION OF PROCEDURE: The patient was brought to the operating room, given a general endotracheal anesthetic. Preoperative antibiotic Ancef was given. Sequential compression device stockings used and heparin subcutaneously administered. The abdomen was prepared with a chlorhexidine solution and draped sterilely. An infraumbilical incision was made and using an open Cong cannula technique, pneumoperitoneum was achieved to a level of 14 mmHg of carbon dioxide gas. Intraabdominal inspection showed no sign of ascites or carcinomatosis. The liver appeared normal. The gallbladder had mild chronic inflammation. Three additional trocars were placed in usual configuration in the subxiphoid, right midclavicular, and right anterior axillary line. The gallbladder was elevated cephalad and retracted laterally. Chronic inflammatory change and edema were noted, but no sign of acute inflammation. Using blunt electrocautery dissection, the triangle of Calot was dissected free ultimately identifying a cystic arterial branch in the cystic duct itself. The cystic artery was doubly clipped and divided. A clip was applied across gallbladder cystic duct junction and a transverse choledochotomy made in the cystic duct. Egress of clear bile was noted. Using the Sutton type cholangiocatheter, intraoperative cholangiography was undertaken showing free flow of contrast in biliary tree with prompt emptying into the duodenum. Notably at the ampullary area was some distortion, possibly consistent with prior ampulotomy. The catheter was removed. The cystic duct was triply clipped and divided, the gallbladder dissected free in a retrograde fashion using electrocautery. Entry to the gallbladder was managed by a few clips to the site, but there was no spillage of stones, so far as could be told. The gallbladder once completely removed from the gallbladder bed of the liver, was extracted with an endobag through the epigastric port, opened on the back table and found to have chronic inflammatory change but no sign of stones or neoplasm. Irrigation was undertaken in the subhepatic space, there was no sign of bile leak, bleeding, or other problems. Electronically Signed By: JERMAINE ADORNO MD 07/17/21 1608 PATIENT NAME: ANTIONETTE JOE MARITA OPERATIVE REPORT DATE OF : 51 REPORT #: [id number] PHYSICIAN: JERMAINE ADORNO MD PCP: LORETTA THOMAS MD REPORT IS CONFIDENTIAL AND NOT TO BE RELEASED WITHOUT AUTHORIZATION [facility] [address] [facility] [place] [place] [address] Signed Given the request of the patient and due to episodic vague right-sided abdominal symptoms, not totally consistent with biliary colic; evaluation was undertaken on the right side of the abdomen. The right colon appeared normal. The appendix was completely obscured from view. The right lower quadrant 5 mm port was placed and using two hand manipulation, the base of the appendix was identified and the appendix examined. The appendix did not have acute inflammation or purulence or anything to suggest acute appendicitis, however, did appear to be wallis and chronically inflamed. With various manipulations, the entire appendix was evaluated and was rather elongated. Appendectomy was deemed advisable under the circumstances of her situation and the operative findings. On that basis, a window was created in the appendix and the mesoappendix and using an Endo-RAFA stapling device, the base of the appendix was transected flushed with the cecum. Further manipulation allowed for application of the EndoGIA stapling device across the mesoappendix and the appendix was placed into the infraumbilical trocar, which was removed in continuity. The appendix was then gently palpated, although did not have a tumor or fecalith. The mesoappendix had firm nodularity suggestive of lymph node enlargement and therefore more of a testimony to the props possible chronic inflammatory nature of the appendix. Irrigation was undertaken. Hemostasis assured with a few additional clips and minimal cautery. Re-inspection of the upper abdomen was then undertaken. There was no sign of bile leak bleeding or other abnormality. Excess irrigation fluid was suctioned free. The trocars removed under direct visualization showing no sign of bleeding. Infraumbilical fascial incision was reapproximated with interrupted 0-Vicryl suture. A 20 mL of 0.25% Marcaine with epinephrine was injected locally. The skin was closed with interrupted 3-0 Vicryl. Steri-Strips were then applied. The patient tolerated the procedure well. Blood loss was minimal overall. Sponge, needle, and counts reported as correct x3. MD LUIS Allan/RADHAL /[id number] cc: Loretta Thomas MD Copies: LORETTA THOMAS MD Electronically Signed By: JERMAINE ADORNO MD 07/17/21 1608 PATIENT NAME: ANTIONETTE JOE MARITA OPERATIVE REPORT DATE OF : 51 REPORT #: [id number] PHYSICIAN: JERMAINE ADORNO MD PCP: LORETTA THOMAS MD REPORT IS CONFIDENTIAL AND NOT TO BE RELEASED WITHOUT AUTHORIZATION [facility] [address] [place] [id number] Signed ~ Electronically Signed By: EJRMAINE ADORNO MD 07/17/21 1608 PATIENT NAME: ANTIONETTE JOE MARITA OPERATIVE REPORT DATE OF : 51 REPORT #: [id number] PHYSICIAN: JERMAINE ADORNO MD PCP: LORETTA THOMAS MD REPORT IS CONFIDENTIAL AND NOT TO BE RELEASED WITHOUT AUTHORIZATION
== END 2021-07-13 18:00 | disposition home or self-care (01) ==
LOC: DS 07:50
PROVIDERS: ATTEND Surgery
PROC: 0DTJ4ZZ Resection of Appendix, Percutaneous Endoscopic Approach (ICD-10-PCS; 2021-07-13)
PROC: 0FT44ZZ Resection of Gallbladder, Percutaneous Endoscopic Approach (ICD-10-PCS; principal; 2021-07-13 09:00)
PROC: BF12YZZ Fluoroscopy of Gallbladder using Other Contrast (ICD-10-PCS; 2021-07-13 09:00)
DX: K81.1 Chronic cholecystitis (principal); K38.2 Diverticulum of appendix; I10 Essential (primary) hypertension; K21.9 Gastro-esophageal reflux disease without esophagitis; H40.9 Unspecified glaucoma; E78.5 Hyperlipidemia, unspecified; Z88.0 Allergy status to penicillin; Z87.891 Personal history of nicotine dependence
CPT/HCPCS: 00790; 74300; 88304; A9270; J0690; J1100; J1644; J1885; J2001; J2370; J2405; J2704; J3010; J7121; Q9967